=== PATIENT | female | born 1960 | race Two or more races ===

== ENCOUNTER → 2016-10-17 | Outpatient (CLI) | payer OTHER ==
--- NOTE | ~2016-10-17 | MY7 ---
[facility] A Service of [facility] RADIOLOGY TEXT RESULTS PATIENT: KRISTAN MATOS LOCATION: [facility] : 64 UNIT #: [id number] AGE: [address]: LUPIS SCHAFFER APRN SEX: F ORDER DR: [id number] [facility] [address] [place], [place] [address] [id number] O MR#: [id number] Acc #: [id number] NAME: KRISTAN MATOS : 1960 SEX: F STUDY DATE/TIME: 10/17/2016 9:16 UNIT: [facility] ROOM: STUDY DESCRIPTION: MY Mammogram Dx Dig Lt Attending Physician: Lupis Schaffer Ordering Physician: Cate Schaffer M.D. Primary Care Physician: Dariel Chavarria M.D. MEDICAL IMAGING REPORT This report is preliminary unless electronic signature is present EXAM Left digital diagnostic mammogram INDICATIONS Asymmetry in the left breast on screening mammogram PROCEDURE True lateral view of the left breast spot compression views left breast CC and MLO projections, images obtained on a digital mammography unit. COMPARISON 09/27/2016 FINDINGS There is a persistent 5 mm mass in the left breast approximately 12 o'clock position. No associated microcalcification. Concurrently performed targeted left breast ultrasound shows a 6 mm hypoechoic lesion in the left breast at the 12 o'clock position 6 cm from the nipple. Has the appearance of either a cluster of microcysts or complex cyst though a true small solid mass is difficult to exclude. IMPRESSION Indeterminate 6-mm mass in the left breast at the 12 o'clock position. Recommend attention on a 6-month followup targeted left breast ultrasound. Patients over the age of 40 are entered into a reminder system with target due date for the next mammogram. A result letter will also be sent to the patient. BIRADS: 3 - Probably benign findings. Short term followup recommended. [facility] [place] [facility] TEXT RESULTS PATIENT: KRISTAN MATOS LOCATION: [facility] : 64 UNIT #: [id number] AGE: [address]: LUPIS SCHAFFER APRN SEX: F ORDER DR: Dictated by... Julian Reich M.D. THIS IS AN ELECTRONICALLY VERIFIED REPORT Julian Reich M.D. at 10/18/2016 7:08 AM ANETTE/mariola TD: 10/17/2016 14:39 JOB #: [id number] MEDICAL IMAGING REPORT COPY
--- NOTE | ~2016-10-17 | US24 ---
[facility] A Service of [facility] RADIOLOGY TEXT RESULTS PATIENT: KRISTAN MATOS LOCATION: [facility] : 64 UNIT #: [id number] AGE: [address]: MIRELA SCHAFFER APRN SEX: F ORDER DR: [id number] [facility] [address] [place], [place] [address] [id number] O MR#: [id number] Acc #: [id number] NAME: KRISTAN MATOS : 1960 SEX: F STUDY DATE/TIME: 10/17/2016 9:47 UNIT: [facility] ROOM: STUDY DESCRIPTION: US Breast Unilateral Attending Physician: Cate Schaffer M.D. Ordering Physician: Cate Schaffer M.D. Primary Care Physician: Dariel Chavarria M.D. MEDICAL IMAGING REPORT This report is preliminary unless electronic signature is present EXAM Left breast ultrasound INDICATIONS Abnormal mammogram. Left breast mass. PROCEDURE Targeted slaughter-scale and Doppler imaging left breast 12:00 position. COMPARISON Concurrently performed diagnostic mammogram. FINDINGS/IMPRESSION Refer to the diagnostic mammogram for workup, findings and recommendations. [id number] Patients over the age of 40 are entered into a reminder system with target due date for the next mammogram. A result letter will also be sent to the patient. BIRADS: 3 Probably benign finding; short interval followup suggested. Dictated by... Julian Reich M.D. THIS IS AN ELECTRONICALLY VERIFIED REPORT Julian Reich M.D. at 10/18/2016 7:08 AM EED/albert TD: 10/17/2016 14:50 JOB #: [id number] [facility] A Service [facility] RADIOLOGY TEXT RESULTS PATIENT: KRISTAN MATOS LOCATION: [facility] : 64 UNIT #: [id number] AGE: [address]: MIRELA SCHAFFER BINDERY LEADPERSON SEX: F ORDER DR: MEDICAL IMAGING REPORT COPY
== END | disposition home or self-care (01) ==
LOC: CMAM 08:49
DX: N64.89 Other specified disorders of breast (principal); N63 Unspecified lump in breast
CPT/HCPCS: 76641; G0206

== ENCOUNTER → 2016-12-18 | Outpatient (CLI) | payer OTHER ==
--- NOTE | ~2016-12-18 | CR63 ---
[facility] A Service of [facility] RADIOLOGY TEXT RESULTS PATIENT: KRISTAN SU LOCATION: [facility] : 64 UNIT #: [id number] AGE: [address]: MIRELA SCHAFFER APRN SEX: F ORDER DR: [id number] [facility] [address] [place], [place] [address] [id number] O MR#: [id number] Acc #: [id number] NAME: KRISTAN SU : 1960 SEX: F STUDY DATE/TIME: 12/18/2016 17:07 UNIT: [facility] ROOM: STUDY DESCRIPTION: CR Chest 2 View Attending Physician: Cate Schaffer M.D. Ordering Physician: Cate Schaffer M.D. Primary Care Physician: Dariel Chavarria M.D. MEDICAL IMAGING REPORT This report is preliminary unless electronic signature is present EXAM Chest PA and lateral 12/18/2016 HISTORY Cough and shortness of breath for 2 months. FINDINGS PA and lateral examination of the chest upright shows a good expansion of the parenchyma with a normal distribution of the pulmonary vascularity. There is no indication of congestion, effusion, infiltrate, tumor, or nodular density. The pleural reflections and diaphragmatic contours are normal. The cardiac silhouette and mediastinal anatomy is within normal limits. IMPRESSION Normal chest. Dictated by... Adam Latham M.D. THIS IS AN ELECTRONICALLY VERIFIED REPORT Adam Latham M.D. at 12/19/2016 2:27 PM BIN/albert TD: 12/18/2016 22:38 JOB #: [id number] MEDICAL IMAGING REPORT Page 1 of 1 COPY
== END | disposition home or self-care (01) ==
LOC: CRAD 16:32
DX: R05 Cough (principal); R06.02 Shortness of breath
CPT/HCPCS: 71020